=== PATIENT | female | born 1970 | race Caucasian/White ===

== ENCOUNTER 2020-02-05 01:06 | Emergency (ER) | payer OTHER ==
[~2020-02-05] VITALS: Ht 157.5 cm; Wt 58.4 kg
[2020-02-05 02:12] LABS: CLARITY URINE CLOUDY (CLEAR); COLOR URINE YELLOW (YELLOW); KETONES URINE NEGATIVE (NEGATIVE); LEUKOCYTE ESTERASE URINE 2+ (NEGATIVE); NITRITE URINE NEGATIVE (NEGATIVE); OCCULT BLOOD URINE NEGATIVE (NEGATIVE); PROTEIN URINE NEGATIVE (NEGATIVE); SPECIFIC GRAVITY URINE 1.018 (1.005-1.030); UROBILINOGEN URINE 0.2 E.U./dL (0.2-1.0)
[2020-02-05 02:35] LABS: BASOPHILS % 0.5 % (0.0-2.0); EOSINOPHILS % 2.2 % (0.0-5.0); HEMATOCRIT. 36.5 % (36.0-48.0); HEMOGLOBIN. 12.8 g/dL (12.0-16.0); LYMPHOCYTES % 19.1 % (20.0-50.0); MEAN CORPUSCULAR HEMOGLOBIN 32.1 pg (28.0-32.0); MEAN CORPUSCULAR VOLUME 91.6 fL (81.0-99.0); NEUTROPHILS % 72.2 % (40.0-76.0); PLATELET 152 x1000/uL (130-400); RED BLOOD CELL COUNT 3.99 mill/uL (4.2-5.4); RED CELL DISTRIBUTION WIDTH 12.9 % (11.6-14.6)
[2020-02-05 02:52] LABS: CHLORIDE 108 mEq/L (98-107)
[2020-02-05] MEDS ORDERED: MAGNESIUM/ALUMINUM HYDROXIDE/SIMETHICONE 30ML UDC PO ONE (03:15)
[2020-02-05 05:14] VITALS: BP 117/69
== END 2020-02-05 05:15 | disposition home or self-care (01) ==
LOC: ER 01:06
DX: R10.9 Unspecified abdominal pain (principal)
CPT/HCPCS: 36415; 71045; 80053; 81003; 81025; 84484; 85025; 93005; 99285